=== PATIENT | male | born 1985 | race Caucasian/White ===

== ENCOUNTER 2024-05-02 04:19 | Day surgery (SDC) | payer OTHER ==
[~2024-05-02] VITALS: Ht 182.9 cm; Wt 116.0 kg
[2024-05-02] VITALS (224 sets, daily range): BP systolic 102–161; BP diastolic 55–114
--- NOTE | 2024-05-02 07:00 | NUR ---
Arrival & Pre-treatment Patient arrived to the ANR suite, identification and demographics confirmed. Patient to room 8, AAO, ambulatory, vitals obtained, ID/allergy/fall bands placed, changed into hospital gown, PITA hose, and non-slip socks. Procedure and timeline explained for treatment and discharge. All questions answered and the patient presents no concerns at this time.
[2024-05-02] MEDS ORDERED: ALBUTEROL SULFATE 2.5 MG VIAL IN PRN (07:30)
[2024-05-02] MEDS ORDERED: PANTOPRAZOLE SODIUM Sesquihydr 40 MG/TAB PO PRN (07:30)
[2024-05-02] MEDS ORDERED: CYANOCOBALAMIN 500 MCG/TAB ( B12) PO PRN (07:30)
[2024-05-02] MEDS ORDERED: cloNIDine HCL 0.1 MG/TAB PO PRN (07:30)
[2024-05-02] MEDS ORDERED: SCOPOLAMINE 1.5 MG DIS TD PRN (07:30)
[2024-05-02] MEDS ORDERED: diazePAM 5 MG/TAB PO PRN ×2 (07:30→08:30)
[2024-05-02] MEDS ORDERED: FAMOTIDINE 20 MG/TAB PO PRN (07:30)
[2024-05-02] MEDS ORDERED: LACTATED RINGER'S 1,000 ML IV PRN ×3 (07:30→19:00)
--- NOTE | 2024-05-02 07:50 | NUR ---
Dr. Stauffer telephoned with patient intake information including usage, dose, last dose/time taken and initial vital signs. Patient history and allergies reviewed with MD. Orders received for 10 + 5 PRN mg PO Valium and 0.3 mg PO Clonidine now. Will reassess per protocol in 1.5 hours and update MD with assessment and vitals. Patient medicated per MD orders. In addition to Clonidine and Valium, patient received 1000 mcg B12 PO, 20 mg Pepcid PO, and Scopolamine TD patch. Medication indication and education provided prior to administration.
[2024-05-02] MEDS ORDERED: ASCORBIC ACID 4,000 MG in SODIUM CHLORIDE 0.9% 1,000 ML IV SCH (08:00)
[2024-05-02 08:36] LABS: BASO% 0.4 % (0-3); EOS% 2.3 % (0-8); HEMATOCRIT 46.6 % (39.0-50.0); HEMOGLOBIN 16.5 g/dl (14.0-18.0); IMMATURE GRANULOCYTES 0.4 % (0.0-5.0); LYMPH% 21.9 % (15-41); MEAN CELL VOLUME 91.6 fL CALC (80.0-100.0); MEAN CORPUSCULAR HGB 32.4 pG CALC (26.0-32.0); MEAN CORPUSCULAR HGB CONC 35.4 g/dL CAL (32.0-36.0); NEUT# 5.13 thou/uL (1.82-7.42); RED BLOOD COUNT 5.09 mill/uL (4.70-6.10); RED CELL DISTRI WIDTH 11.3 % (11.5-15.5)
[2024-05-02 08:44] LABS: ALBUMIN 4.3 g/dL (3.2-5.0); BILIRUBIN, TOTAL 1.3 mg/dL (0.2-1.3); CREATININE 0.8 mg/dL (0.7-1.3); TOTAL PROTEIN 7.5 g/dL (6.3-8.2)
[2024-05-02] MEDS ORDERED: diazePAM 5 MG/TAB VT PRN (09:25)
[2024-05-02] MEDS ORDERED: NALTREXONE HCL 50 MG/TAB VT PRN (09:25)
[2024-05-02] MEDS ORDERED: POTASSIUM CHLORIDE 10 MEQ/50 ML BAG IV PRN (09:25)
[2024-05-02] MEDS ORDERED: DiphenhydrAMINE HCL 50 MG/ML SDV IV PRN (09:25)
[2024-05-02] MEDS ORDERED: STERILE WATER FOR IRRIGATION 1,000 ML BTL IR PRN (09:25)
[2024-05-02] MEDS ORDERED: MAGNESIUM SULFATE HEPTAHYDRATE 100 ML IV PRN (09:25)
[2024-05-02] MEDS ORDERED: PROPOFOL 10 MG/ML 100ML VIAL IV PRN (09:25)
[2024-05-02] MEDS ORDERED: LIDOCAINE HCL 1% (10MG/ML) 100 MG/10 ML MDV IV PRN (09:25)
[2024-05-02] MEDS ORDERED: DEXAMETHASONE SODIUM PHOSPHATE PF 10 MG/ML SDV IV PRN ×2 (09:25→19:00)
[2024-05-02] MEDS ORDERED: PROPOFOL 100 ML IV PRN (09:25)
[2024-05-02] MEDS ORDERED: cloNIDine HYDROCHLORIDE 100 MCG/ML 10 ML INJ IV PRN (09:25)
[2024-05-02] MEDS ORDERED: LIDOCAINE HCL 1% (10MG/ML) 100 MG/10 ML MDV VT PRN ×2 (09:25)
[2024-05-02] MEDS ORDERED: OCTREOTIDE ACETATE 100 MCG/VIAL SDV SC PRN (09:25)
[2024-05-02] MEDS ORDERED: ROCURONIUM BROMIDE 10 MG/ML 5ML VIAL IV PRN (09:25)
[2024-05-02] MEDS ORDERED: SUCCINYLCHOLINE CHLORIDE 20 MG/ML 10ML VIAL IV PRN (09:25)
[2024-05-02] MEDS ORDERED: MIDAZOLAM HCL 2 MG/2 ML VIAL IV PRN (09:25)
[2024-05-02] MEDS ORDERED: cloNIDine HCL 0.1 MG/TAB VT PRN (09:25)
[2024-05-02] MEDS ORDERED: ONDANSETRON HCl 4 MG/2 ML SDV IV PRN ×3 (09:25→19:00)
[2024-05-02] MEDS ORDERED: THIAMINE HCL 100 MG/ML 2ML VIAL IV PRN (09:25)
--- NOTE | 2024-05-02 09:27 | NUR ---
Patient resting comfortably in bed. Easily aroused, maintains focus, and drifts back to sleep. No signs of active withdrawal or distress noted at this time. Continuous SPO2, rhythm, and respiratory monitoring initiated. IVF @ 250 mL/HR, room air, VSS.
[2024-05-02] MEDS ORDERED: PHENYLEPHRINE HCL 10 MG/ML VIAL ONE (09:34)
[2024-05-02] MEDS ORDERED: SODIUM CHLORIDE 0.9% 250 ML IV ONE (09:36)
--- NOTE | 2024-05-02 11:25 | NUR ---
Induction Note Patient to ANR procedure room. Time out performed at 1125. Patient placed on monitors, Parish hugger, bilateral wrist restraints applied for ET tube protection. Versed 5mg given IV push at 1140 Tourniquet applied to RIGHT arm Lidocaine 100mg given [id number] IV push followed by Rocoronium 10mg at 1142 IV push and held for 90 seconds. Propofol bolus of 200mg given at 1144 IV push. Succinylcholine 80mg given IV push at 1145. Smooth intubation with 7.5 ETT. Positive CO2. Positive Auscultation for air exchange. Patient placed on ventilator for spontaneous ventilation. Placed on Propofol IV drip at 1146. OG inserted. Positive air on auscultation. Positive gastric content. Stomach washed at this time.
--- NOTE | 2024-05-02 12:00 | NUR ---
OG close note Stomach washed at this time. Naltrexone 50 mg with Clonidine 0.3 mg via OG tube. OG will be clamped for 45 minutes.
--- NOTE | 2024-05-02 12:30 | NUR ---
PRECEDEX GTT INITIATED AT THIS TIME, PER HOSPITAL PROTOCOL.
--- NOTE | 2024-05-02 12:45 | NUR ---
OG open note OG open at this time. Gastric content draining into drainage bag. OG to drain for 45 minutes. Propofol will be titrated down based on patient.
[2024-05-02] MEDS ORDERED: NALTREXONE50 MG PO (13:02)
[2024-05-02] MEDS ORDERED: KLONOPIN2 MG PO (13:02)
[2024-05-02] MEDS ORDERED: CLONIDINE0.1 MG PO (13:03)
--- NOTE | 2024-05-02 13:30 | NUR ---
OG close note Stomach washed at this time. Naltrexone 50 mg with Clonidine 0.2 mg via OG tube. OG will be clamped for 45 minutes.
--- NOTE | 2024-05-02 13:52 | NUR ---
PRECEDEX GTT INITIATED ON PATIENT. DOSING IS PER HOSPITAL PROTOCOL.
--- NOTE | 2024-05-02 14:43 | NUR ---
Order for hydralizine 5mg iv given to administer now. BP 149/103. precedex is on maximum dosing.
[2024-05-02] MEDS ORDERED: hydrALAZINE HCL 20 MG/ML VIAL(1 ML) IV ONE (14:45)
--- NOTE | 2024-05-02 15:00 | NUR ---
OG close note Stomach washed at this time. Naltrexone 50 mg with Clonidine 0.2 mg via OG tube. OG will be clamped for 45 minutes.
[2024-05-02] MEDS ORDERED: INSULIN REGULAR (HUMAN) 100 UNIT/ML INJ IV ONE (15:55)
--- NOTE | 2024-05-02 16:00 | NUR ---
DR. Contreras ORDERED A BLOOD SUGAR RECHECK. FINGER STICK REVEALED A BS OF 340. 10UNITS OF REGULAR INSULIN GIEN IVP. DR. CONTRERAS INSTRUCTED SN THAT UPON PATIENTS D/C TO PROVIDED HIM WITH LABS RESULTS FROM THIS HOSPITALIZATION AND TO ALSO INFORM PATIENT FOR THE NEED OF FOLLOW UP WITH HIS PCP FOR NEW ONSET OF HYPERTENSION.
--- NOTE | 2024-05-02 16:30 | NUR ---
WAITING TIME / NO CLOSING No OG close at this time. Patient continues to react to treatment. Vitals, total Naltrexone & Clonidine, treatment duration and patient assessment discussed with Dr. Stauffer. No orders for medication administration at this time. OG to be left open to gravity, Propofol titrated based on patient response.
--- NOTE | 2024-05-02 17:00 | NUR ---
OG close note Stomach washed at this time. Naltrexone 25 mg with Clonidine 0.2 mg via OG tube. OG will be clamped for 30 minutes.
[2024-05-02] MEDS ORDERED: DEXTROSE 50% 50 ML/SYR IV PRN (17:05)
[2024-05-02] MEDS ORDERED: DEXTROSE 250 ML IV PRN (17:05)
--- NOTE | 2024-05-02 17:30 | NUR ---
OG open note OG open at this time. Gastric content draining into drainage bag. OG to drain for 45 minutes. Propofol will be titrated down based on patient. BLOOD SUGAR RECHECKED SINCE 10 UNTIS OF REGULAR INSULIN GIVEN IV. RECHECK BS IS 311. DR. CONTRERAS ORDERED AN ADDITIONAL 20UNITS OF IV R INSULIN. CHECK BS PRIOR TO TRANSPORT TO [facility]
--- NOTE | 2024-05-02 17:50 | NUR ---
Extubation note Closing medications given Benadryl 50mg IV push, Decadron 10mg IV push,Magnesium 4 grams IV, Zofran 8mg IV push, Octreotide 100mcg SC. Stomach washed out prior to extubation. Suctioned gastric content. OG removed. Patient extubated. Propofol Discontinued. Wrist restraints removed. Parish hugger Removed. See ANR Moderate sedate recovery record for further notes and assessment.
[2024-05-02] MEDS ORDERED: INSULIN LISPRO 100 UNITS/ML ML SC SCH (18:00)
[2024-05-02] MEDS ORDERED: INSULIN REGULAR (HUMAN) 100 UNIT/ML INJ SC SCH (18:10)
[2024-05-02] MEDS ORDERED: INSULIN REGULAR (HUMAN) 100 UNIT/ML INJ IV SCH (18:20)
--- NOTE | 2024-05-02 18:28 | NUR ---
HIGH FLOW OXYGEN ORDERED FOR PATIENT ONCE ON MED-SURG. RT CALLED AND ORDER PLACED IN THE COMPUTER.
--- NOTE | 2024-05-02 18:54 | NUR ---
TRANSER NOTE Patient transferred to medical-surgical unit room . Report given to at bedside. Head to toe assessment, treatment, medications, I/O, IV access reviewed with RN. All questions answered. IVF to continue at 100 ml/hr, NC @ 4L, no adventitious breath sounds. Safety precautions in place, bed locked and in lowest position, call light in reach. Handoff of care at the time this note.
--- NOTE | 2024-05-02 18:54 | NUR ---
SN SPOKE WITH PATIENTS MOTHER, TANYA AND INFORMED HER OF A SUCCESSFUL PROCEDURE. QUESTIONS ASKED AND ANSWERED.
[2024-05-02] MEDS ORDERED: HALOPERIDOL LACTATE 5 MG/ML SDV IV PRN (19:00)
[2024-05-02] MEDS ORDERED: PROMETHAZINE HCL 25 MG in SODIUM CHLORIDE 0.9% 50 ML IV PRN (19:00)
[2024-05-02] MEDS ORDERED: ACETAMINOPHEN 1,000 MG/100 ML VIAL IV PRN (19:00)
[2024-05-02] MEDS ORDERED: PROMETHAZINE HCL 12.5 MG in SODIUM CHLORIDE 0.9% 50 ML IV PRN (19:00)
[2024-05-02] MEDS ORDERED: KETOROLAC TROMETHAMINE 30 MG/ML SDV IV PRN (19:00)
[2024-05-02] MEDS ORDERED: ACETAMINOPHEN 500 MG TAB PO PRN (19:00)
--- NOTE | 2024-05-02 20:13 | NUR ---
RECEIVED REPORT FROM NURSE TARSHA, PATIENT TRANSPORTED VIA BED PATIENT ARRIVED UNIT AT 1903, PATIENT ON HIGH FLOW NC AT 8LPM, PATIENT IV ON RAC G 20 LR AT 100CC/HR INFUSING WELL AND SALINE LOCK ON LFA PATENT FLUSHES WELL, PATIENT HAD A LARGE INCONTINENCE OF URINE. PATIENT CLEANED, PATIENT V/S OBTAINED. PATIENT RESPONSIVE NOT IN DISTRESS, PATIENT SLEEPING BED ALARM IN PLACED.
[2024-05-02] MEDS ORDERED: diazePAM 10 MG/2 ML VIAL IV PRN (21:00)
[2024-05-02] MEDS ORDERED: PATIENT' OWN MED CONTROLLED 1 EA DOSE IV PRN (21:00)
--- NOTE | 2024-05-02 21:47 | NUR ---
PATIENT STATED FEELS "SHIT". PATIENT LEGS RESTLESS. BACK HURTS, PRN TORADOL AND VALIUM GIVEN
[2024-05-02] MEDS ORDERED: cloNIDine HCL 0.1 MG/TAB PO SCH (23:00)
[2024-05-02] MEDS ORDERED: clonazePAM 1 MG/TAB PO SCH (23:00)
--- NOTE | 2024-05-02 23:48 | NUR ---
PATIENT ASSISTED TO THE BEDSIDE COMMODE, HAD A LARGE BM, PATIENT ASSITED BACK IN BED.BED ALARM IN PLACED.
--- NOTE | 2024-05-03 00:15 | NUR ---
SCOOTER ACCIDENTALLY PULLED IV ON RAC CATHETERT INTACT.
[2024-05-03 03:11] VITALS: BP 142/92
[2024-05-03 03:17] VITALS: BP 142/92
--- NOTE | 2024-05-03 03:50 | NUR ---
PATIENT ACCIDENTALLY PULLED HIS OTHER IV ON LFA CATHETER INTACT, NEW IV INSERTED ON RT HAND G 22 HOOKED LR AT 100CC/HR, PATIENT STILL RESTLESS PRN CLONIDINE AND CLONAZEPAM GIVEN.
[2024-05-03] MEDS ORDERED: clonazePAM 1 MG/TAB PO PRN ×2 (04:00→08:00)
[2024-05-03] MEDS ORDERED: cloNIDine HCL 0.1 MG/TAB PO PRN (04:00)
[2024-05-03 05:02] LABS: BASO% 0.1 % (0-3); HEMATOCRIT 47.7 % (39.0-50.0); HEMOGLOBIN 16.7 g/dl (14.0-18.0); IMMATURE GRANULOCYTES 0.2 % (0.0-5.0); LYMPH% 5.2 % (15-41); MEAN CELL VOLUME 91.6 fL CALC (80.0-100.0); MEAN CORPUSCULAR HGB 32.1 pG CALC (26.0-32.0); MONO% 2.4 % (2-13); NEUT# 12.13 thou/uL (1.82-7.42); NEUT% 92.1 % (42-76); RED BLOOD COUNT 5.21 mill/uL (4.70-6.10); RED CELL DISTRI WIDTH 11.2 % (11.5-15.5)
[2024-05-03 05:21] LABS: ALBUMIN 4.4 g/dL (3.2-5.0); BILIRUBIN, TOTAL 1.3 mg/dL (0.2-1.3); CREATININE 0.8 mg/dL (0.7-1.3); MAGNESIUM 2.3 mg/dL (1.6-2.3); POTASSIUM 3.7 mmol/l (3.5-5.1); TOTAL PROTEIN 7.6 g/dL (6.3-8.2)
[2024-05-03] MEDS ORDERED: diazePAM 5 MG/TAB PO PRN (07:35)
[2024-05-03 07:58] VITALS: BP 134/81
[2024-05-03] MEDS ORDERED: POTASSIUM CHLORIDE 20 MEQ/TAB PO SCH (08:00)
[2024-05-03] MEDS ORDERED: cloNIDine HCL 0.1 MG/TAB PO SCH (08:00)
[2024-05-03] MEDS ORDERED: ACETAMINOPHEN 325 MG/TAB PO SCH (08:00)
[2024-05-03] MEDS ORDERED: NALTREXONE HCL 50 MG/TAB PO SCH ×2 (08:00→10:30)
[2024-05-03] MEDS ORDERED: PANTOPRAZOLE SODIUM Sesquihydr 40 MG/TAB PO SCH (08:00)
--- NOTE | 2024-05-03 08:30 | NUR ---
PATIENT A/O X3; ROOM AIR; BREATHING UNLABORED AND EVEN;STATES HE HAVING PAIN OR DISCOMFORT IN LEGS; DENIED ANY N/V; HAVE HAD SEVERAL BMS LAST NIGHT; IV ISTE CLEAN AND INTACT RUNNING WITH LR; PATIENT STATES WHEN HE TRIED TO EAT HIS ABD WOULD HURT INFORMED HIM TO SLOWLY EAT AND TRY TO DRINK IF POSSIBLE; PERONSAL ITEMS IN CLOEST;PATIENT HAS HIS PHONE; BED IN LOWEST POSTION, BED ALARM ACTIVATED; PATEINT HAVE WALKED WITH LIMITED ASSIST TO THE BATHROOM WITH NO ISSUES
[2024-05-03] MEDS ORDERED: ACETAMINOPHEN 500 MG TAB PO PRN (09:00)
[2024-05-03] MEDS ORDERED: Cholecalciferol 2,000 UNIT/TAB PO PRN (09:00)
[2024-05-03] MEDS ORDERED: MAGNESIUM OXIDE 400 MG/TAB PO PRN (09:00)
--- NOTE | 2024-05-03 09:00 | NUR ---
PATIENT STATES ABD AREA IN PAIN; INFORMED PATIENT THAT HE MAY HAVE GAS FROM PROCEDURE DOWN STAIR YESTERDAY, ENCOURAGED PATIENT TO AMBULATE IN ROOM TO HELP WITH ABD PAIN; INFORMED MICHELLE ON HOW PATIENT IS FEELING;
--- NOTE | 2024-05-03 09:57 | NUR ---
PATIENT STILL RESTLESS, ADM VALIUM 5MG AND PATIENT TOLERATED MEDICATION
--- NOTE | 2024-05-03 11:28 | NUR ---
patient walked down hallway, was upset about light from windows; found eye shilds in bag, and that helped; encouraged patient to rest
--- NOTE | 2024-05-03 11:50 | NUR ---
patient glucose was 281, 5 units given
--- NOTE | 2024-05-03 12:10 | NUR ---
patient a/o x3; room air; breathing unlabored and even; denied any n.d.v at this time; some abd cramping, encouraged patient to keep moving around and reduce any gas that may be causing the discomfort; no s/s of withdrawls or discomfort; medication was reviewed; personal items in closet; patinet tolertated insulin with no issues; patient phone is with him; encouraged patient to try to eat some lunch if the discomfort allows him to; call light within reach,verbalized understanding on how to use, personal items away; bed in lowest postion; bed alarm activated
--- NOTE | 2024-05-03 14:50 | NUR ---
followed up with patient regarding abd pain, patient states pain is going away and feels much better
--- NOTE | 2024-05-03 15:59 | NUR ---
IV site discontinued, cath intact. No edema , no redness, voices no discomfort. Discharge instructions given. Patient verbalizes understanding of same. Discharged in stable condition via Wheelchair to Home with family. All belongings sent with pt.
== END 2024-05-03 15:58 | disposition home or self-care (01) | DRG 897 ==
LOC: MS2 04:19 → ANR 04:19 → MS2 04:27 → ANR 07:00 → MS2 18:30 → ANR 05-03 15:58
PROVIDERS: ATTEND Anesthesiology
DX: F11.20 Opioid dependence, uncomplicated (principal)
CPT/HCPCS: J0131; J1100; J2354; J3475; J3490